=== PATIENT | male | born 1945 | race Caucasian/White ===

== ENCOUNTER 2016-08-22 08:37 | Day surgery (SDC) | payer MEDICARE, OTHER ==
--- NOTE | ~2016-08-22 | OP ---
Record Of Operation [facility] [address] [place] [id number] NAME: GARRET VIDES : 47 STATUS : [place] [facility] [place] PAT#: [id number] AGE: 70 ADM/REG DATE : 08/22/16 MR#: [id number] REPORT SERV DATE: 08/22/16 DICTATED BY: ARCADIO HYDE DATE: 08/22/16 REPORT STATUS : Draft TRANSCRIBED BY: MODL DATE: 08/22/16 DATE OF PROCEDURE: 08/22/2016 PROCEDURE: Bedside feeding tube change. Mr. Vides is a 70-year-old man who has chronic dysphagia. His feeding tube had fallen out a few days prior and a Taveras was placed. The patient presents that his abdomen was inspected and was noted to have a Taveras tube within a well formed PEG tract. The fluid was removed from the balloon and an 18-Cameroonian balloon replaceable PEG was placed to it. The balloon was inflated with 10 mL and was in good position. The plan was to check placement and confirm it through Radiology and the patient could otherwise follow up as needed. GO/MODL Arcadio Hyde MD / [id number] CC: MD PAULINA Vega
[~2016-08-22 08:37] MED LIST: C2; COUMADIN3 MG; CYMBALTA30 PO; CYMBALTA60 PO; FLOMAX4 PO; FLORASTOR250 MG PO; JANTOVEN2 MG; K-TABS10 MEQ PO; LAN25 PO; MULTIPLE VIT PO; NEUR300 PO; PRILO PO; TURMERIC PO; VITAMIN B12 LIQUID PO; VITAMIN D31000 UNIT PO
[2016-08-22 09:12] LABS: INTERNATIONAL NORMAL RATI 1.8 UNITS (-); PROTIME (NOT ORD) 21.1 SEC (12.0-14.5)
== END 2016-08-22 23:59 | disposition home or self-care (01) ==
LOC: DMU 08:37
PROVIDERS: Anesthesiology; Internal Medicine Gastroenterology
PROC: 0D20XUZ Change Feeding Device in Upper Intestinal Tract, External Approach (ICD-10-PCS; principal; 2016-08-22 10:00)
DX: Z46.59 Encounter for fitting and adjustment of other gastrointestinal appliance and device (principal); Z88.1 Allergy status to other antibiotic agents; Z79.899 Other long term (current) drug therapy; Z79.01 Long term (current) use of anticoagulants; Z90.89 Acquired absence of other organs; Z98.52 Vasectomy status; Z90.49 Acquired absence of other specified parts of digestive tract; Z98.890 Other specified postprocedural states
CPT/HCPCS: 49465; 85610